=== PATIENT | male | born 1950 | race Caucasian/White ===

== ENCOUNTER 2018-02-11 15:02 | Outpatient (RCR) | payer MEDICARE ==
--- NOTE | 2018-02-10 11:42 | RADIOLOGY IMAGING REPORT ---
FACILITY: [facility] - [place] PATIENT NAME: Adrian Morris : 1950 MR: [id number] V: [id number] EXAM DATE: ORDERING PHYSICIAN: VICKIE MOLINA TECHNOLOGIST: Location: [facility] Patient: Adrian Morris : 1950 Visit/Account:[id number] Date of Sevice: 02/10/2018 CHEST PA AND LAT HISTORY: History of smoking. COMPARISON: None FINDINGS: Cardiomediastinal contours: The heart size is slightly enlarged. There is a small hiatal hernia the retrocardiac region. Lungs and pleura: There is no finding of an infiltrate, lymphadenopathy or pleural effusion. Bones/soft tissues: There are discogenic degenerative changes throughout the thoracic spine. IMPRESSION: 1. Mild cardiomegaly without congestive heart failure or infiltrate. 2. Small retrocardiac hiatal hernia. Report Dictated By: Ricardo De Santiago MD at 02/10/2018 11:36 AM Report E-Signed By: Ricardo De Santiago MD at 02/10/2018 11:37 AM WSN:[email or web address]
[~2018-02-11 15:02] MED LIST: NONE PER PATIENT
--- NOTE | 2018-02-16 09:28 | RADIOLOGY IMAGING REPORT ---
FACILITY: [facility] - [place] PATIENT NAME: Adrian Morris : 1950 MR: [id number] V: [id number] EXAM DATE: ORDERING PHYSICIAN: VICKEI MOLINA TECHNOLOGIST: Location: [facility] [place] Patient: Adrian Morris : 1950 Visit/Account:[id number] Date of Sevice: 02/16/2018 ABDOMINAL AORTIC ULTRASOUND: INDICATION: History of tobacco use COMPARISON: None available FINDINGS: Suprarenal abdominal aorta measures 2.2 cm AP X 2.2 cm transverse Superior infrarenal abdominal aorta measures 1.7 cm AP X 1.7 cm transverse Mid infrarenal abdominal aorta measures 1.7 cm AP X 1.7 cm transverse Inferior infrarenal abdominal aorta measures 1.9 cm AP X 1.8 cm transverse Mural thrombus: None Right common iliac artery measures 1.3 cm and the left common iliac artery measures 1.2 cm. IVC is patent. Right kidney is unremarkable. Simple appearing cyst is present in the left kidney. IMPRESSION: No evidence of abdominal aortic aneurysm. Report Dictated By: Maritza Kolb MD at 02/16/2018 9:21 AM Report E-Signed By: Maritza Kolb MD at 02/16/2018 9:24 AM WSN:[email or web address]
== END 2018-02-16 18:00 | disposition home or self-care (01) ==
LOC: EDSTATUS 15:02 → RAD 15:02
PROVIDERS: ATTEND Family Medicine
DX: K44.9 Diaphragmatic hernia without obstruction or gangrene (principal)
CPT/HCPCS: 71046; 93978